=== PATIENT | male | born 2000 | race Caucasian/White ===

== ENCOUNTER 2021-01-10 18:04 | Emergency (ER) | payer OTHER, SELFPAY ==
--- NOTE | ~2021-01-10 | XR_ITS ---
EXAMINATION: XR CHEST CLINICAL INFORMATION: Cough. Flu positive. COMPARISON: None TECHNIQUE: 2 views of the chest were obtained. FINDINGS: The lungs are clear. The cardiomediastinal silhouette is normal in size. There is no pleural effusion or pneumothorax. No acute osseous abnormality. XR/XR chest 2V IMPRESSION: No acute cardiopulmonary findings.
[2021-01-10 20:27] VITALS: BP 124/74; PULSE 115; RESP 20; TEMP 36.9; O2SAT 98; BMI 20.2
--- NOTE | 2021-01-10 20:44 | ED_ITS ---
HPI - General Adult General Chief complaint: General Medical Stated complaint: flu like Time Seen by Provider: 01/10/21 22:28 Source: patient Mode of arrival: ambulatory Limitations: no limitations History of Present Illness HPI narrative: 21 yo male Presents with worsening symptoms associated with positive flu. Patient was reportedly positive flu approximately 1 week ago states that he has not been able to eat or drink because of his sore throat and has had nausea and vomiting the past several days. Onset (ago): week(s) (1) Location: head and chest Severity: moderate Severity scale (1-10): 5 Quality: aching Pain Consistency: constant Relieving factors: none Associated symptoms: fever/chills, headaches, loss of appetite, nausea/vomiting and weakness Treatments prior to arrival: NSAID Related Data Allergies Allergy/AdvReac Type Severity Reaction Status Date / Time No Known Allergies Allergy Verified 01/10/21 20:26 Review of Systems Review of Systems: Constitutional: positive Fever, positive Chills, positive fatigue, positive Mal aise ENT/Mouth: positive sore throat, positive runny nose Eyes: No Discharge Cardiovascular: No Chest Pain, No SOB Respiratory: No Cough, No Sputum, No Wheezing, No Smoke Exposure, No Dyspnea Gastrointestinal: Positive Nausea, positive Vomiting, No Diarrhea Genitourinary: no irregular bleeding, No Dysuria, No Urinary Frequency, No Hematuria, No Urinary Incontinence, No Urgency, No Flank Pain, Musculoskeletal: positive Myalgia Skin: No rash Neuro: positive Headache Yes all other systems are reviewed and are negative PMFSH Past Medical History Attestation statement: The following information was validated with the patient. Source: old records reviewed Social History Social History Advance Directives: No Physical Exam Vital Signs: Vital Signs: Last Vital Signs Temp 99.3 F 01/10/21 22:58 Pulse 84 01/10/21 22:58 Resp 18 01/10/21 22:58 BP 128/57 L 01/10/21 22:58 Pulse Ox 97 01/10/21 22:58 Body Mass Index 20.2 Appearance: Alert. Oriented X3. moderate distress. Eyes: Pupils equal, round and reactive to light. ENT: Pharynx normal. no cervical lymphadenopathy. Neck: Normal inspection. Neck supple. No nuchal rigidity. CVS: Tachycardic. Respiratory: No respiratory distress. Breath sounds normal. Abdomen: Soft and nontender. Skin: Skin warm and dry. Normal skin color. Normal skin turgor. Extremities: Moves all extremities against resistance. Neuro: No motor deficit. No sensory deficit. Cranial nerves 2-12 intact. Course Course Course Narrative: 21-year-old male presents with positive flu and worsening symptoms. Patient is tachycardic, appears dry physical exam is unremarkable. Will resuscitate with 2 L of fluid, give Toradol and Zofran . X-rays are negative for acute findings. patient states to feel much better after 2 L of fluid. Vital signs have improved heart rate is now 85. Patient able to tolerate p.o. fluids. Plan of care is to discharge home. Patient verbalized understanding of and agrees plan care To discharge home. Medical Decision Making Differential Diagnosis Differential Diagnosis: Pharyngitis, influenza, pneumonia, dehydration Medical Records Medical records reviewed: Yes I reviewed the patient's medical records. Imaging Data Chest x-ray: Attestation: I personally reviewed and interpreted this imaging study as follows: Radiologist's impression: EXAMINATION: XR CHEST CLINICAL INFORMATION: Cough. Flu positive. COMPARISON: None TECHNIQUE: 2 views of the chest were obtained. FINDINGS: The lungs are clear. The cardiomediastinal silhouette is normal in size. There is no pleural effusion or pneumothorax. No acute osseous abnormality. XR/XR chest 2V IMPRESSION: No acute cardiopulmonary findings. Critical Care Time Critical Care Time Critical Care Time: Yes Total Critical Care Time: 30 Attestation: I have personally provided critical care time exclusive of time spent on separately billable procedures. Time includes review of laboratory data, radiology results, discussion with consultants, and monitoring for potential decompensation. Interventions were performed as documented. Discharge Plan Discharge Clinical Impression: Influenza, Acute dehydration Patient Disposition: Home, Self-Care Instructions: Dehydration (ED), Influenza (ED) Additional Instructions: you were evaluated for symptoms consistent with influenza And dehydration. Please drink plenty of fluids. Follow-up with primary care physician as needed. Thank you for choosing this emergency department for evaluation. Please follow-up with primary care physician as needed. Return to the emergency department for any new, concerning, or worsening symptoms. Stand Alone Forms: Work/School Release Interventions: ED Discharge Assessment Last Done: 01/10/21 23:39 Discharge Date/Time: 01/10/21 23:35
[2021-01-10 21:01] VITALS: TEMP 37.4
[2021-01-10] MEDS: ondansetron HCL 4 MG/2 ML VIAL IVPUSH (21:23)
[2021-01-10] MEDS: Lactated Ringers 1,000 ML 999 ML IV (21:23)
[2021-01-10] MEDS: Ketorolac Tromethamine 15 MG/ML VIAL 30 MG IVPUSH (21:24)
[2021-01-10 22:58] VITALS: BP 128/57; PULSE 84; RESP 18; TEMP 37.4; O2SAT 97
== END 2021-01-10 23:35 | disposition home or self-care (01) ==
PROVIDERS: Emergency Provider Internal Medicine
DX: J11.1 Influenza due to unidentified influenza virus with other respiratory manifestations (principal); E86.0 Dehydration
CPT/HCPCS: 71046; 96361; 96374; 96375; 99283; 99285; J1885; J2405